=== PATIENT | female | born 1995 | race African-American/Black ===

== ENCOUNTER 2017-01-17 16:13 | Emergency (ER) | payer BC ==
[2017-01-17 16:21] VITALS: BP 134/76; PULSE 118; TEMP 98.6; BMI 28.3
--- NOTE | 2017-01-17 16:30 | PDOC ---
History of Present Illness - General Chief Complaint: Vaginal Bleeding Stated Complaint: VAGINAL BLEEDING Time Seen by Provider: 01/17/17 16:25 History Source: Patient Exam Limitations: No Limitations - History of Present Illness Initial Comments: CHIEF COMPLAINT: 21 y/o afebrile female with no significant PMH c/o left lower pelvic pain today. HISTORY OF PRESENT ILLNESS: The patient states as soon as she felt the pelvic pain, which she rated 5/10, she took Advil and rushed over here. She does admit that the Advil helped and her pain has most subsided. She denies f/c, n/v /d, CP, SOB, hematuria, dysuria, abnormal vaginal discharge. She does admit today is the last day of her menstrual cycle. She is sexually active and is not preventing . PCP is Dr. Raymond Hassan POSTIE. She has never had a PAP smear. Vital signs on arrival are notable for pulse of 118. REVIEW OF SYSTEMS: GENERAL/CONSTITUTIONAL: No fever/chills. No weakness. No weight change. HEAD, EYES, EARS, NOSE AND THROAT: No change in vision. No ear pain or discharge. No sore throat. CARDIOVASCULAR: No chest pain or shortness of breath. RESPIRATORY: No cough, wheezing, or hemoptysis. GASTROINTESTINAL: +left lower abd/pelvic pain. No nausea, vomiting, diarrhea, constipation. GENITOURINARY: No dysuria, frequency, or change in urination. MUSCULOSKELETAL: No joint or muscle swelling or pain. No neck or back pain. SKIN: No rash or easy bruising. NEUROLOGIC: No headache, vertigo, loss of consciousness, or loss of sensation. PHYSICAL EXAM: GENERAL: The patient is awake, alert, and fully oriented, in no acute distress. She is very well appearing and ambulatory. HEAD: Normal with no signs of trauma. ENT: Pupils equal, round and reactive to light, extraocular movements intact, sclera anicteric, conjunctiva clear. Neck supple. LUNGS: Clear to auscultation bilaterally. Normal excursion. No respiratory distress or use of accessory muscles. CV: RRR, S1/S2, no MRG. Cap refill < 2 sec. ABDOMEN: Soft, non-distended, non-tender even to deep palpation, no hepatomegaly or splenomegaly, no masses. no rebound, guarding or rigidity. No flank pain with palpation. BACK: No CVA TTP b/l. VAGINAL: No blood in the vault. Os appears normal and closed. No lesions. No CMT or adnexal tenderness on digital exam. EXTREMITIES: Normal range of motion, no edema. NEUROLOGICAL: Normal speech, normal gait. CN II-XII grossly intact. PSYCH: Normal mood, normal affect. SKIN: Warm, dry, normal turgor, no rashes or lesions noted. Past History - Past Medical History Allergies/Adverse Reactions: Allergies Allergy/AdvReac Type Severity Reaction Status Date / Time No Known Drug Allergies Allergy Verified 01/17/17 18:47 No Known Drug Intolerances Allergy Verified 01/17/17 18:47 berries Allergy Uncoded 01/17/17 16:22 nuts Allergy Uncoded 01/17/17 16:22 sea food Allergy Uncoded 01/17/17 16:22 Home Medications: Ambulatory Orders Cephalexin Monohydrate [Keflex -] 500 mg PO BID #14 capsule 01/17/17 Other medical history: NONE - Immunization History Td Vaccination: Yes TDAP Vaccination: Yes Immunization Up to Date: Yes - Psycho/Social/Smoking Cessation Hx Anxiety: No Suicidal Ideation: No Smoking History: Never smoked Have you smoked in the past 12 months: No Number of Cigarettes Smoked Daily: 0 Cigars Per Day: 0 Hx Alcohol Use: No Drug/Substance Use Hx: No Substance Use Type: None *Physical Exam - Vital Signs Last Vital Signs Temp Pulse Resp BP Pulse Ox 98.6 F 118 H 20 134/76 100 01/17/17 16:18 01/17/17 16:18 01/17/17 16:18 01/17/17 16:18 01/17/17 16:18 ED Treatment Course - LABORATORY CBC & Chemistry Diagram: 01/17/17 18:48 01/17/17 18:48 Medical Decision Making - Medical Decision Making A/P: 21 y/o female with left pelvic/lower abdominal pain today that has almost completely resolved with Advil. Completely benign physical exam. Plan is as follows: 1. UA/hcg/culture hcg - positive Will initiate full work up for vaginal bleeding in . Patient found to have UTI. Will give first dose of Keflex in the ER. I am signing this patient out to my colleague: AMY Tirado In brief, this patient is being seen in the ED for a chief complaint of: lower abdominal pain and vaginal bleeding I have completed the initial assessment interview note and have ordered: UA/hcg , labs, type and screen, ultrasound I have reviewed the following results: HCG/ UA Pending results are: rest Plan for disposition is as follows: Pending *DC/Admit/Observation/Transfer Diagnosis at time of Disposition: Vaginal bleeding in UTI (urinary tract infection) Qualifiers: Urinary tract infection type: acute cystitis Hematuria presence: without hematuria Qualified Code(s): N30.00 - Acute cystitis without hematuria - Discharge Dispostion Disposition: HOME Condition at time of disposition: Good - Prescriptions Prescriptions: Cephalexin Monohydrate [Keflex -] 500 mg PO BID #14 capsule - Referrals Referrals: Raymond Vides MD [Primary Care Provider] - Gina Hightower MD [Staff Physician] - - Patient Instructions Printed Discharge Instructions: Human Chorionic Gonadotropin, DI for Urinary Tract Infection (UTI) Additional Instructions: Please take medication as prescribed for your UTI. Please return in 2 days for repeat lab work as discussed. As discussed, you will need to follow up with gynecology within the next week as well. If you experience any vaginal bleeding , vomiting, fever, pain, or any new or worsening symptoms, please return to the ER.
[2017-01-17 18:09] LABS: URINE APPEARANCE CLEAR; URINE BILIRUBIN NEGATIVE (NEGATIVE); URINE BLOOD NEGATIVE (NEGATIVE); URINE COLOR YELLOW; URINE GLUCOSE (UA) NEGATIVE (NEGATIVE); URINE KETONE NEGATIVE (NEGATIVE)
[2017-01-17 18:10] LABS: URINE NITRITE NEGATIVE (NEGATIVE); URINE PROTEIN NEGATIVE (NEGATIVE); URINE UROBILINOGEN NEGATIVE mg/dL (0.2-1.0)
--- NOTE | 2017-01-17 18:20 | PDOC ---
*Physical Exam - Vital Signs Last Vital Signs Temp Pulse Resp BP Pulse Ox 98.6 F 118 H 20 134/76 100 01/17/17 16:18 01/17/17 16:18 01/17/17 16:18 01/17/17 16:18 01/17/17 16:18 - Physical Exam Comments: 01/17/17 18:20 The patient was examined by [ALEJANDRA Rivera] under my direct supervision. I personally evaluated the patient. I concur with the above findings and the plan of care. ED Treatment Course - LABORATORY CBC & Chemistry Diagram: 01/17/17 18:48 01/17/17 18:48 - ADDITIONAL ORDERS Additional order review: Laboratory Results 01/17/17 17:30 Urine HCG, Qual Positive *DC/Admit/Observation/Transfer Diagnosis at time of Disposition: UTI (urinary tract infection), Vaginal bleeding in - Discharge Dispostion Disposition: HOME Condition at time of disposition: Good - Prescriptions Prescriptions: Cephalexin Monohydrate [Keflex -] 500 mg PO BID #14 capsule - Referrals Referrals: Gina Hightower MD [Staff Physician] - Raymond Vides MD [Primary Care Provider] - - Patient Instructions Printed Discharge Instructions: Human Chorionic Gonadotropin, DI for Urinary Tract Infection (UTI) Additional Instructions: Please take medication as prescribed for your UTI. Please return in 2 days for repeat lab work as discussed. As discussed, you will need to follow up with gynecology within the next week as well. If you experience any vaginal bleeding , vomiting, fever, pain, or any new or worsening symptoms, please return to the ER.
[2017-01-17 18:21] LABS: URINE LEUK ESTERASE 2+ (NEGATIVE)
[2017-01-17 18:27] LABS: URINE MUCUS FEW; URINE RBC 23 /hpf (0-3); URINE WBC 35 /hpf (3-5)
[2017-01-17] MEDS ORDERED: CEPHALEXIN MONOHYDRATE 250 MG CAPSULE (FP) PO ONE (18:45)
[2017-01-17] MEDS ORDERED: CEPHALEXIN MONOHYDRATE 250 MG CAPSULE (FP) ONE (18:53)
[2017-01-17 19:06] LABS: BASOPHIL 0.5 % (0-2.0); EOSINOPHIL 0.9 % (0-4.5); MCH 25.8 pg (25.7-33.7); MCHC 31.5 g/dl (32.0-36.0); MEAN CELL VOLUME 81.8 fl (80-96); MEAN PLT VOLUME 8.5 fl (7.5-11.1); NEUTROPHILS 77.1 % (42.8-82.8); PLATELET COUNT 286 K/MM3 (134-434); RDW 13.8 % (11.6-15.6); WHITE BLOOD COUNT 12.2 K/mm3 (4.0-10.0)
[2017-01-17 19:39] LABS: ALBUMIN 4.4 g/dl (3.4-5.0); ANION GAP 8 (8-16); BILIRUBIN,TOTAL 0.2 mg/dL (0.2-1.0); CALCIUM 9.8 mg/dL (8.5-10.1); CO2 25 mmol/L (21-32); CREATININE 0.8 mg/dL (0.55-1.02); GLUCOSE,RANDOM 90 mg/dL (74-106); SGOT/AST 17 U/L (15-37); SGPT/ALT 25 U/L (12-78); TOT PROT 8.2 g/dl (6.4-8.2)
[2017-01-17 19:41] LABS: ALK PHOS 71 U/L (45-117)
--- NOTE | 2017-01-17 21:20 | PDOC ---
*Physical Exam - Vital Signs Last Vital Signs Temp Pulse Resp BP Pulse Ox 98.6 F 118 H 20 134/76 100 01/17/17 16:18 01/17/17 16:18 01/17/17 16:18 01/17/17 16:18 01/17/17 16:18 - Physical Exam Comments: 01/17/17 21:20 Sign-out received from outgoing ER provider Gloria. Pt interviewed and examined. Ancillary studies reviewed. beta hcg 263 Awaiting TVUS. No IUP appreciated on TVUS, ddx includes miscarriage vs early . Patient to f/u in 48 hours for repeat beta. ED Treatment Course - LABORATORY CBC & Chemistry Diagram: 01/17/17 18:48 01/17/17 18:48 - ADDITIONAL ORDERS Additional order review: Laboratory Results 01/17/17 01/17/17 01/17/17 18:48 18:48 17:30 Sodium 138 Potassium 3.9 Chloride 105 Carbon Dioxide 25 Anion Gap 8 BUN 12 Creatinine 0.8 Creat Clearance w eGFR > 60 Random Glucose 90 Calcium 9.8 Total Bilirubin 0.2 AST 17 ALT 25 Alkaline Phosphatase 71 Total Protein 8.2 Albumin 4.4 Beta HCG, Quant 263.7 Urine Color Yellow Urine Appearance Clear Urine pH 6.0 Urine Protein Negative Urine Glucose (UA) Negative Urine Ketones Negative Urine Blood Negative Urine Nitrite Negative Urine Bilirubin Negative Urine Urobilinogen Negative Ur Leukocyte Esterase 2+ H Urine RBC 23 Urine WBC 35 Ur Epithelial Cells Rare Urine Mucus Few Urine HCG, Qual Positive Blood Type O NEGATIVE Antibody Screen Negative 01/17/17 18:48 RBC 4.95 MCV 81.8 MCHC 31.5 L RDW 13.8 MPV 8.5 Neutrophils % 77.1 Lymphocytes % 16.9 Monocytes % 4.6 Eosinophils % 0.9 Basophils % 0.5 - Medications Given in the ED: ED Medications Discontinued Medications Generic Name Dose Route Start Last Admin Trade Name Freq PRN Reason Stop Dose Admin Cephalexin HCl 500 mg 01/17/17 18:45 01/17/17 18:55 Keflex - PO 01/17/17 18:46 500 mg ONCE ONE Administration *DC/Admit/Observation/Transfer Diagnosis at time of Disposition: Vaginal bleeding in UTI (urinary tract infection) Qualifiers: Urinary tract infection type: acute cystitis Hematuria presence: without hematuria Qualified Code(s): N30.00 - Acute cystitis without hematuria - Discharge Dispostion Disposition: HOME Condition at time of disposition: Good - Prescriptions Prescriptions: Cephalexin Monohydrate [Keflex -] 500 mg PO BID #14 capsule - Referrals Referrals: Gina Hightower MD [Staff Physician] - Raymond Vides MD [Primary Care Provider] - - Patient Instructions Printed Discharge Instructions: Human Chorionic Gonadotropin, DI for Urinary Tract Infection (UTI) Additional Instructions: Please take medication as prescribed for your UTI. Please return in 2 days for repeat lab work as discussed. As discussed, you will need to follow up with gynecology within the next week as well. If you experience any vaginal bleeding , vomiting, fever, pain, or any new or worsening symptoms, please return to the ER. - Post Discharge Activity
== END 2017-01-17 22:41 | disposition home or self-care (01) ==
LOC: JER 16:13
DX: O26.891 Other specified pregnancy related conditions, first trimester (principal); N93.9 Abnormal uterine and vaginal bleeding, unspecified; N30.00 Acute cystitis without hematuria
CPT/HCPCS: 36415; 76817-TC; 80053; 81003; 81015; 84702; 84703; 85025; 86850; 86900; 86901; 87086; 87186; 99282-25

== ENCOUNTER 2017-01-19 10:45 | Emergency (ER) | payer BC ==
[2017-01-19 10:50] VITALS: BP 118/77; PULSE 82; TEMP 98.2; BMI 28.3
--- NOTE | 2017-01-19 11:53 | PDOC ---
History of Present Illness - General Chief Complaint: [facility] [place] Stated Complaint: REVISIT Time Seen by Provider: 01/19/17 11:01 History Source: Patient Exam Limitations: No Limitations - History of Present Illness Travel History: No Initial Comments: 01/19/17 11:49 21-year-old female presents to the ED for evaluation of continual left-sided suprapubic pain and a repeat beta hCG. Patient states was seen here 2 days ago and was told to return for the above. Patient denies vaginal bleeding presently. Patient denies fever, chills, dysuria and states is on Keflex for the past 2 days after being diagnosed with UTI here in the ER. Timing/Duration: reports: constant Quality: reports: mild, cramping Abdominal Pain Onset Location: reports: suprapubic (left) Pain Radiation: reports: no radiation Aggravating Factors: improves with: None Alleviating Factors: improves with: None Past History - Past Medical History Allergies/Adverse Reactions: Allergies Allergy/AdvReac Type Severity Reaction Status Date / Time No Known Drug Allergies Allergy Verified 01/19/17 10:46 No Known Drug Intolerances Allergy Verified 01/19/17 10:46 berries Allergy Uncoded 01/19/17 10:46 nuts Allergy Uncoded 01/19/17 10:46 sea food Allergy Uncoded 01/19/17 10:46 Home Medications: Ambulatory Orders Cephalexin Monohydrate [Keflex -] 500 mg PO BID #14 capsule 01/17/17 Other medical history: none - Immunization History Td Vaccination: Yes TDAP Vaccination: Yes Immunization Up to Date: Yes - Psycho/Social/Smoking Cessation Hx Anxiety: No Suicidal Ideation: No Smoking History: Never smoked Have you smoked in the past 12 months: No Number of Cigarettes Smoked Daily: 0 Cigars Per Day: 0 Information on smoking cessation initiated: No Hx Alcohol Use: No Drug/Substance Use Hx: No Substance Use Type: None Patient Lives Alone: No Lives with/in: parents Review of Systems - Review of Systems Able to Perform ROS?: Yes Constitutional: No: Symptoms Reported HEENTM: No: Symptoms Reported : No: Dysuria, Discharge, Frequency, Flank Pain Musculoskeletal: No: Symptoms Reported Integumentary: No: Symptoms Reported Neurological: No: Symptoms reported *Physical Exam - Vital Signs Last Vital Signs Temp Pulse Resp BP Pulse Ox 98.2 F 82 18 118/77 100 0714/17 10:46 01/19/17 10:46 01/19/17 10:46 01/19/17 10:46 01/19/17 10:46 - Physical Exam General Appearance: Yes: Nourished, Appropriately Dressed. No: Apparent Distress HEENT: negative: Pale Conjunctivae Female Pelvic Exam: positive: normal external exam. negative: CMT, adnexal tenderness, vaginal bleeding Gastrointestinal/Abdominal: positive: Normal Bowel Sounds, Soft, Tenderness (lt suprapubic). negative: Distended, Guarding, Rebound Integumentary: positive: Normal Color, Warm, Moist Neurologic: positive: Motor Strength 5/5 (ambulatory) ED Treatment Course - RADIOLOGY Radiology Studies Ordered: Category Date Time Status TRANSVAGINAL US PREG [US] Stat Ultrasound 01/19/17 11:07 Ordered Medical Decision Making - Medical Decision Making 01/19/17 11:52 Patient here for repeat beta hCG and ultrasound. Patient's last beta hCG was 237. Patient's ultrasound showed no adnexal masses, fluid collection, intrauterine gestational sac. Patient ordered for repeat beta hCG along with a transvaginal ultrasound. Differential: Corpus luteum, ectopic, discomfort secondary to UTI. 01/19/17 12:13 Laboratory Tests 01/17/17 01/19/17 18:48 10:59 Beta HCG, Quant 263.7 122.2 01/19/17 12:41 Ultrasound shows normal-appearing uterus with no evidence of intrauterine . Both ovaries appear unremarkable. Due to decrease in hCG and ultrasound, patient has miscarried. *DC/Admit/Observation/Transfer Diagnosis at time of Disposition: Spontaneous - Discharge Dispostion Disposition: HOME Condition at time of disposition: Good - Referrals Referrals: Raymond Vides MD [Primary Care Provider] - - Patient Instructions Printed Discharge Instructions: DI for Miscarriage Additional Instructions: The ultrasound and blood work represent a miscarriage. I do recommend that you follow up with your package dyer next week.
== END 2017-01-19 12:50 | disposition home or self-care (01) ==
LOC: JERFT 10:45
DX: O02.1 Missed abortion (principal); Z3A.00 Weeks of gestation of pregnancy not specified
CPT/HCPCS: 36415; 76817-TC; 84702; 99281-25

== ENCOUNTER 2018-03-13 11:23 | Emergency (ER) | payer BC ==
[2018-03-13 11:28] VITALS: BP 133/69; PULSE 94; TEMP 98; BMI 28.3
--- NOTE | 2018-03-13 12:16 | PDOC ---
History of Present Illness - General Chief Complaint: ,Possible Stated Complaint: POSSIBLE - History of Present Illness Initial Comments: 22-year-old who miscarried last year without comorbidities presents for evaluation of concerns about due to a broken condom during her last sexual encounter she has mild cramping and one week of early onset of menses. 03/13/18 12:14 Past History - Past Medical History Allergies/Adverse Reactions: Allergies Allergy/AdvReac Type Severity Reaction Status Date / Time No Known Drug Allergies Allergy Verified 03/13/18 11:27 No Known Drug Intolerances Allergy Verified 03/13/18 11:27 berries Allergy Uncoded 03/13/18 11:27 nuts Allergy Uncoded 03/13/18 11:27 sea food Allergy Uncoded 03/13/18 11:27 Home Medications: Ambulatory Orders NK [No Known Home Medication] 03/13/18 COPD: No - Immunization History Td Vaccination: Yes TDAP Vaccination: Yes Immunization Up to Date: Yes - Suicide/Smoking/Psychosocial Hx Smoking History: Never smoked Have you smoked in the past 12 months: No Number of Cigarettes Smoked Daily: 0 Cigars Per Day: 0 Hx Alcohol Use: No Drug/Substance Use Hx: No Substance Use Type: None Review of Systems - Review of Systems : Yes: See HPI All Other Systems: Reviewed and Negative *Physical Exam - Vital Signs Last Vital Signs Temp Pulse Resp BP Pulse Ox 98 F 94 H 18 133/69 100 03/13/18 11:24 03/13/18 11:24 03/13/18 11:24 03/13/18 11:24 03/13/18 11:24 - Physical Exam Comments: HEAD: NC/AT EYES: Conjuntiva clear MS: Full ROM in all joints without edema NEUROLOGIC: No gross sensory or motor deficits, NVID SKIN: Normal color and temperature no lesions or rashes 03/13/18 12:15 03/13/18 12:40 Medical Decision Making - Medical Decision Making Negative , this is normal menses she may follow up with her [employer] for further evaluation and treatment options. 03/13/18 12:40 *DC/Admit/Observation/Transfer Diagnosis at time of Disposition: Negative test - Discharge Dispostion Disposition: HOME Condition at time of disposition: Stable Decision to Admit order: No - Referrals Referrals: Peewee,Raymond N., MD [Primary Care Provider] - Herminio Lozano MD [Non Staff, Medical] - Lesli Freeman MD [Non Staff, Medical] - Anjelica Pereira [Non Staff, Medical] - Greg Bone MD [Non Staff, Medical] - Inocente Gamez MD [Non Staff, Medical] - Lois Taylor MD [Non Staff, Medical] - Lita-Marge Adam MD [Non Staff, Medical] - - Patient Instructions Additional Instructions: Her test is negative today. This is a normal period for you. Return to the emergency room should he develop any further symptoms. Otherwise follow- up with obstetrics and gynecology for further evaluation and treatment options. - Post Discharge Activity
== END 2018-03-13 12:46 | disposition home or self-care (01) ==
LOC: JERFT 11:23
DX: Z32.02 Encounter for pregnancy test, result negative (principal)
CPT/HCPCS: 84703; 99281-25